=== PATIENT | female | born 1970 | race Caucasian/White ===

== ENCOUNTER 2016-08-03 12:02 | Outpatient (CLI) | payer BC ==
[~2016-08-03] VITALS: Ht 165.1 cm; Wt 67.8 kg
[2016-08-03] MEDS ORDERED: LEVO50TA6 PO (12:14)
[2016-08-03] MEDS ORDERED: PARO20TA5 PO (12:14)
[2016-08-03 12:16] VITALS: BP 113/72
[2016-08-03 12:39] LABS: BASOPHILS % (AUTO) 1 % (0-10); EOSINOPHILS # (AUTO) 0.2 10^3/uL (0.0-0.3); EOSINOPHILS % (AUTO) 4 % (0-10); LYMPHOCYTES # (AUTO) 2.4 X 10^3 (1.0-4.0); LYMPHOCYTES % (AUTO) 39 % (12-44); MEAN CORPUSCULAR HEMOGLOBIN 31 PG (25-34); MEAN CORPUSCULAR HGB CONC 33 G/DL (32-36); MEAN CORPUSCULAR VOLUME 92 FL (80-99); MEAN PLATELET VOLUME 9.3 FL (7.4-10.4); MONOCYTES # (AUTO) 0.6 X 10^3 (0.0-1.0); MONOCYTES % (AUTO) 9 % (0-12); NEUTROPHILS % (AUTO) 48 % (42-75); PLATELET COUNT 362 10^3/uL (130-400); RED BLOOD COUNT 4.71 10^6/uL (4.35-5.85); WHITE BLOOD COUNT 6.3 10^3/uL (4.3-11.0)
[2016-08-03 12:54] LABS: BILIRUBIN,TOTAL 0.4 MG/DL (0.1-1.0); CALCIUM 9.6 MG/DL (8.5-10.1); CHLORIDE 105 MMOL/L (98-107); SODIUM 140 MMOL/L (135-145)
[2016-08-03 13:29] LABS: ALANINE AMINOTRANSFERASE 23 U/L (0-55); ALBUMIN 4.3 G/DL (3.2-4.5); ANION GAP 10 MMOL/L (5-14); ASPARTATE AMINO TRANSFERASE 25 U/L (5-34); BLOOD UREA NITROGEN 10 MG/DL (7-18); BUN/CREATININE RATIO 11; CARBON DIOXIDE 25 MMOL/L (21-32); GFR ESTIMATED > 60; GLUCOSE 82 MG/DL (70-105); TOTAL PROTEIN 7.4 G/DL (6.4-8.2)
== END 2016-08-03 15:43 | disposition home or self-care (01) ==
LOC: PREOP 12:02
PROVIDERS: ATTEND Otolaryngology Otolaryngology/Facial Plastic Surgery
DX: Z01.812 Encounter for preprocedural laboratory examination (principal); Z11.2 Encounter for screening for other bacterial diseases; H65.23 Chronic serous otitis media, bilateral
CPT/HCPCS: 36415; 80053; 85025; 87081

== ENCOUNTER 2016-08-10 06:54 | Day surgery (SDC) | payer BC ==
[~2016-08-10] VITALS: Ht 165.1 cm; Wt 67.8 kg
[~2016-08-10 06:54] MED LIST: LEVO50TA6 PO; PARO20TA5 PO
--- NOTE | 2016-08-10 07:21 | Progress Note-Pre Operative ---
Pre-Operative Progress Note H&P Reviewed The H&P was reviewed, patient examined and no changes noted. Date H&P Reviewed: Aug 10, 2016 Time H&P Reviewed: 07:15 Pre-Operative Diagnosis: Bilat Chronic JOHAN MERCEDES AARON MD Aug 10, 2016 7:21 am
[2016-08-10 07:29] VITALS: BP 109/73
[2016-08-10] MEDS ORDERED: proPOfol 200 MG/20 ML (DIPRIVAN) VIAL IV ONE (07:43)
[2016-08-10] MEDS ORDERED: LIDOCAINE PF 2% 10 ML (XYLOCAINE) AMP ONE (07:43)
[2016-08-10] MEDS ORDERED: LACTATED RINGERS 1,000 ML IV PRN (07:43)
[2016-08-10] MEDS ORDERED: MIDAZOLAM 2 MG/2 ML (VERSED) VIAL ONE (07:44)
[2016-08-10] MEDS ORDERED: fentaNYL INJECTION 100 MCG/2 ML AMP ONE (07:50)
[2016-08-10] MEDS ORDERED: LACTATED RINGERS 1,000 ML IV ONE (08:32)
[2016-08-10] MEDS ORDERED: SEVOFLURANE (ULTANE) 15 ML INHAL SOLN ONE (08:32)
--- NOTE | 2016-08-10 08:35 | Progress Note-Post Operative ---
Post-Operative Progess Note Surgeon (s)/Supervisor Phosphoric Acid (s) Surgeon MERCEDES AARON MD Supervisor Phosphoric Acid n/a Pre-Operative Diagnosis Bilat Chronic JOHAN Post-Operative Diagnosis same Post-Op Procedure Note Date of Procedure: Aug 10, 2016 Name of Procedure Performed: bmt Description & Findings Description and Findings: n/a Anesthesia Type lma Estimated Blood Loss minimal Packing none. Specimen(s) collected/removed none MERCEDES AARON MD Aug 10, 2016 8:35 am
[2016-08-10] MEDS ORDERED: APAP 325 MG/10.15 ML LIQ (TYLENOL) UDC PO PRN (08:45)
[2016-08-10 09:25] VITALS: BP 115/81
[2016-08-10] MEDS ORDERED: CIPR5DRO OP (09:38)
[2016-08-10] MEDS ORDERED: ACETAMINOPHEN 500 MG TAB (TYLENOL) ONE (09:48)
[2016-08-10 09:55] VITALS: BP 123/88
[2016-08-10] MEDS ORDERED: ACETAMINOPHEN 500 MG TAB (TYLENOL) PO ONE (10:00)
[2016-08-10 10:20] VITALS: BP 123/88
== END 2016-08-10 10:20 | disposition home or self-care (01) ==
LOC: SDC 06:54
PROVIDERS: ATTEND Otolaryngology Otolaryngology/Facial Plastic Surgery
DX: H65.23 Chronic serous otitis media, bilateral (principal)
CPT/HCPCS: 84703; 93005

== ENCOUNTER 2022-01-20 20:09 | Emergency (ER) | payer BC ==
[~2022-01-20] VITALS: Ht 165 cm; Wt 155.0 kg
[~2022-01-20 20:09] MED LIST changes: +CIPR5DRO OP
[2022-01-20] MEDS ORDERED: FLUORESCEIN (FLUOR-I-STRIPS) 1 MG STRP OU ONE (20:15)
[2022-01-20] MEDS ORDERED: TETRACAINE 0.5% OPHTH SOLN 4 ML BTL (SINGLE DOSE ONLY) OU ONE (20:15)
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
[2022-01-20 20:33] LABS: BASOPHILS # (AUTO) 0.1 10^3/uL (0.0-0.1); BASOPHILS % (AUTO) 0 % (0-10); EOSINOPHILS # (AUTO) 0.2 10^3/uL (0.0-0.3); EOSINOPHILS % (AUTO) 2 % (0-10); HEMATOCRIT 44 % (35-52); HEMOGLOBIN 14.9 g/dL (11.5-16.0); LYMPHOCYTES # (AUTO) 4.2 10^3/uL (1.0-4.0); LYMPHOCYTES % (AUTO) 37 % (12-44); MEAN CORPUSCULAR HEMOGLOBIN 30 pg (25-34); MEAN CORPUSCULAR HGB CONC 34 g/dL (32-36); MEAN CORPUSCULAR VOLUME 88 fL (80-99); MONOCYTES # (AUTO) 0.8 10^3/uL (0.0-1.0); MONOCYTES % (AUTO) 7 % (0-12); NEUTROPHILS % (AUTO) 53 % (42-75); PLATELET COUNT 408 10^3/uL (130-400); WHITE BLOOD COUNT 11.4 10^3/uL (4.3-11.0)
[2022-01-20] MEDS ORDERED: RX-TOBRAMYCIN (TOBREX) 0.3% OP OINT 3.5 GM TUBE OU STA (20:40)
[2022-01-20 20:57] VITALS: BP 129/80
[2022-01-20 20:57] LABS: BUN/CREATININE RATIO 12; CALCIUM 9.6 MG/DL (8.5-10.1); CARBON DIOXIDE 20 MMOL/L (21-32); CHLORIDE 106 MMOL/L (98-107); CREATININE SERUM 1.39 MG/DL (0.60-1.30); GFR ESTIMATED 45; GLUCOSE 108 MG/DL (70-105); POTASSIUM 3.8 MMOL/L (3.6-5.0); SODIUM 140 MMOL/L (135-145)
== END 2022-01-20 20:57 | disposition home or self-care (01) ==
LOC: EDUNIT# 20:09 → ER 20:12
DX: T15.11XA Foreign body in conjunctival sac, right eye, initial encounter (principal); F17.210 Nicotine dependence, cigarettes, uncomplicated; Z28.310 Unvaccinated for COVID-19; W45.8XXA Other foreign body or object entering through skin, initial encounter
CPT/HCPCS: 65205; 80048; 85025; 99284; G0480; 36415; 80320

== ENCOUNTER 2022-03-19 21:22 | Emergency (ER) | payer BC ==
[2022-03-19] MEDS ORDERED: KETOROLAC 30 MG/ML VIAL IVP STA (21:39)
[2022-03-19] MEDS ORDERED: ONDANSETRON 4 MG/2 ML (SDV) Z0FRAN IVP ONE (21:45)
[2022-03-19] MEDS ORDERED: LACTATED RINGERS 1,000 ML IV ONE (21:45)
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
[2022-03-19 22:15] LABS: BASOPHILS # (AUTO) 0.1 10^3/uL (0.0-0.1); BASOPHILS % (AUTO) 0 % (0-10); EOSINOPHILS # (AUTO) 0.2 10^3/uL (0.0-0.3); EOSINOPHILS % (AUTO) 1 % (0-10); HEMATOCRIT 46 % (35-52); HEMOGLOBIN 15.4 g/dL (11.5-16.0); LYMPHOCYTES # (AUTO) 2.7 10^3/uL (1.0-4.0); LYMPHOCYTES % (AUTO) 19 % (12-44); MEAN CORPUSCULAR HEMOGLOBIN 29 pg (25-34); MEAN CORPUSCULAR HGB CONC 34 g/dL (32-36); MEAN CORPUSCULAR VOLUME 88 fL (80-99); MEAN PLATELET VOLUME 9.1 fL (9.0-12.2); MONOCYTES # (AUTO) 0.8 10^3/uL (0.0-1.0); MONOCYTES % (AUTO) 6 % (0-12); NEUTROPHILS # (AUTO) 10.6 10^3/uL (1.8-7.8); NEUTROPHILS % (AUTO) 74 % (42-75); PLATELET COUNT 436 10^3/uL (130-400); WHITE BLOOD COUNT 14.4 10^3/uL (4.3-11.0)
[2022-03-19 22:40] LABS: ALANINE AMINOTRANSFERASE 24 U/L (0-55); ALBUMIN 4.6 GM/DL (3.2-4.5); ALKALINE PHOSPHATASE 70 U/L (40-136); AMYLASE 66 U/L (25-125); BILIRUBIN,TOTAL 0.4 MG/DL (0.1-1.0); BUN/CREATININE RATIO 16; CALCIUM 10.1 MG/DL (8.5-10.1); CARBON DIOXIDE 23 MMOL/L (21-32); CHLORIDE 100 MMOL/L (98-107); CREATININE SERUM 1.12 MG/DL (0.60-1.30); GFR ESTIMATED 59; GLUCOSE 114 MG/DL (70-105); LIPASE 17 U/L (8-78); SODIUM 136 MMOL/L (135-145); TOTAL PROTEIN 8.3 GM/DL (6.4-8.2)
[2022-03-19 22:43] LABS: BILIRUBIN,URINE NEGATIVE (NEGATIVE); CLARITY,URINE CLEAR; COLOR,URINE YELLOW; GLUCOSE, URINE (UA) NEGATIVE (NEGATIVE); KETONES,URINE TRACE (NEGATIVE); LEUKOCYTE ESTERASE ,URINE NEGATIVE (NEGATIVE); NITRITE,URINE NEGATIVE (NEGATIVE); PROTEIN,URINE TRACE (NEGATIVE)
[2022-03-19 22:50] LABS: BACTERIA,URINE NEGATIVE /HPF; WBC,URINE 0-2 /HPF
[2022-03-19 22:53] LABS: LYMPHOCYTES % (MANUAL) 17 %; MONOCYTES % (MANUAL) 5 %; NEUTROPHILS % (MANUAL) 78 %; RBC MORPH NORMAL
[2022-03-19 23:04] LABS: AMPHETAMINE SCREEN, URINE NEGATIVE (NEGATIVE); BARBITURATE SCREEN URINE NEGATIVE (NEGATIVE); BENZODIAZEPINES SCREEN URINE NEGATIVE (NEGATIVE); CANNABINOID SCREEN, URINE NEGATIVE (NEGATIVE); COCAINE SCREEN URINE NEGATIVE (NEGATIVE); METHADONE STAT NEGATIVE (NEGATIVE); OPIATE SCREEN URINE NEGATIVE (NEGATIVE); OXYCODONE STAT NEGATIVE (NEGATIVE); PROPOXYPHENE STAT NEGATIVE (NEGATIVE); TRICYCLIC ANTIDEPRESSANTS SCRE NEGATIVE (NEGATIVE)
[2022-03-20] MEDS ORDERED: DICY20TA PO (00:21)
[2022-03-20] MEDS ORDERED: PANT40TA2 PO (00:21)
[2022-03-20] MEDS ORDERED: ONDA4TAB11 PO (00:21)
[2022-03-20 00:30] VITALS: BP 112/68
[2022-03-20] MEDS ORDERED: NS 100 ML (IVPB) BAG IV ONE (00:30)
[2022-03-20] MEDS ORDERED: HOLD METFORMIN - RECEIVED CONTRAST 20 ML VIAL IV SCH (00:30)
[2022-03-20] MEDS ORDERED: IOHEXOL 350 MG/ML 100 ML (OMNIPAQUE 350) VIAL IV ONE (00:30)
--- NOTE | 2022-03-20 05:35 | Diagnostic Imaging Report ---
PROCEDURE: CT abdomen and pelvis with contrast. TECHNIQUE: Multiple contiguous axial images were obtained through the abdomen and pelvis after administration of intravenous contrast. Auto Exposure Controls were utilized during the CT exam to meet ALARA standards for radiation dose reduction. All CT scans use one or more of the following dose optimizing techniques: automated exposure control, MA and/or KvP adjustment based on patient size and exam type or iterative reconstruction. INDICATION: 51-year-old female presents with abdominal pain. COMPARISONS: None FINDINGS: Lung bases show an incidental bleb in the right middle lobe measuring 3.5 cm. There is no consolidation, effusion or pneumothorax. Cardiac contour is normal. Liver shows uniform attenuation. Gallbladder is nondistended. Spleen and GE junction are normal. Stomach and duodenal sweep are unremarkable. Pancreas shows sharp margins. Adrenals are normal. Kidneys appear normal in size, position, and contour. There is symmetrical perfusion of contrast. There is no hydronephrosis or hydroureter. Both ureters are seen intermittently through their course and appear unremarkable. Bladder is nondistended. Nonopacified loops of small bowel are normal. Large bowel contains fecal material and gas. Descending colon is mostly decompressed. There is no free air, free fluid or adenopathy. Visualized vasculature shows normal caliber of the aorta, iliac and femoral arteries with normal origin of the visceral arteries. Bone windows show no overall gross abnormalities. There is some degenerative changes at L5-S1 with a vacuum disc as well as hypertrophic facet changes. IMPRESSION: 1. Unremarkable postcontrast CT of the abdomen and pelvis. There is no evidence of cholecystitis, appendicitis or obstructive uropathy. No areas of peritoneal inflammation seen. 2. L5-S1 degenerative disease. Agree with [facility] report. Dictated by: Dictated on workstation # [id number]
--- NOTE | 2022-03-20 08:20 | Diagnostic Imaging Report ---
INDICATION: Abdominal pain FINDINGS: The lungs clear. No failure, effusion or pneumothorax. Bowel gas pattern nonobstructing, nonobstructive colonic fecal load may be mildly elevated but not grossly pathologic. No impaction or obstruction. Pelvic phleboliths noted. No suspicious calcifications. IMPRESSION: No acute appearing abnormality identified at acute abdominal series. Dictated by: Dictated on workstation # [id number]
== END 2022-03-20 00:30 | disposition home or self-care (01) ==
LOC: EDUNIT# 21:22 → ER 21:25
DX: R10.84 Generalized abdominal pain (principal); F17.210 Nicotine dependence, cigarettes, uncomplicated; Z28.310 Unvaccinated for COVID-19
CPT/HCPCS: 74022; 74177; 80053; 80306; 81000; 82150; 83690; 83735; 85007; 85027; 99283; G0480; 36415; 80320